=== PATIENT | female | born 1980 | race Caucasian/White ===

== ENCOUNTER 2020-10-12 17:28 | Emergency (ER) | payer SELFPAY ==
[~2020-10-12] VITALS: Ht 149.1 cm; Wt 49.0 kg
[~2020-10-12 17:28] MED LIST: ALPR.25T
--- NOTE | 2020-10-12 17:49 | ED Psychosocial ---
General Chief Complaint: Psych/Social Disorder Stated Complaint: SUICIDAL History of Present Illness Date Seen by Provider: Oct 12, 2020 Time Seen by Provider: 17:45 Initial Comments Patient is a 40-year-old female who presents to the emergency room by EMS today with a chief complaint of suicidal ideation. Patient has been undergoing some recent family stress and had a panic attack today. She called her therapist and verbalized some of her stresses to the therapist and mentioned that she was suicidal. The patient states that she was going to take all of her citalopram and hydroxyzine in order to overdose. Patient states "I just do not feel like I want to be here anymore". She states "I just cannot do anything". Timing/Duration: just prior to arrival Severity: severe Associated Symptoms: suicidal ideation (JAKI RIVER MD) Allergies and Home Medications Allergies Coded Allergies: No Known Drug Allergies (Unverified Allergy, Mild, 06/09/09) Patient Home Medication List Home Medication List Reviewed: Yes (JAKI RIVER MD) Review of Systems Constitutional: see HPI (KEVIN JETER) All Other Systems Reviewed Negative Unless Noted: Yes (KEVIN JETER) Past Kyhdzub-Sgcozv-Sbsqqs Hx Past Medical History Reproductive Disorders: No (JAKI RIVER MD) Physical Exam Vital Signs - First Documented 10/12/20 17:28 Temp 35.6 Pulse 75 Resp 18 B/P (MAP) 133/88 (103) Pulse Ox 98 O2 Delivery Room Air (KEVIN JETER) Capillary Refill : (JAKI RIVER MD) Height, Weight, BMI Height: '" Weight: lbs. oz. kg; BMI Method: General Appearance: WD/WN, moderate distress (Tearful and upset) Neck: full range of motion Respiratory: no respiratory distress, no accessory muscle use Extremities: normal inspection Neurologic/Psychiatric: alert, normal mood/affect (Depressed mood and flat affect), oriented x 3, depressed affect Appearance/Memory: appropriate appearance, neat, no memory impairment Behavior/Eye Contact: cooperative, good eye contact, normal speech Skin: normal color (JAKI RIVER MD) Skin: warm/dry (KEVIN JETER) Progress/Results/Core Measures Results/Orders Lab Results Laboratory Tests Test 10/12/20 18:16 Range/Units White Blood Count 10.5 4.3-11.0 10^3/uL Red Blood Count 4.42 3.80-5.11 10^6/uL Hemoglobin 14.6 11.5-16.0 g/dL Hematocrit 42 35-52 % Mean Corpuscular Volume 96 80-99 fL Mean Corpuscular Hemoglobin 33 25-34 pg Mean Corpuscular Hemoglobin Concent 35 32-36 g/dL Red Cell Distribution Width 13.8 10.0-14.5 % Platelet Count 191 130-400 10^3/uL Mean Platelet Volume 11.2 9.0-12.2 fL Immature Granulocyte % (Auto) 0 % Neutrophils (%) (Auto) 64 42-75 % Lymphocytes (%) (Auto) 29 12-44 % Monocytes (%) (Auto) 6 0-12 % Eosinophils (%) (Auto) 0 0-10 % Basophils (%) (Auto) 0 0-10 % Neutrophils # (Auto) 6.7 1.8-7.8 10^3/uL Lymphocytes # (Auto) 3.0 1.0-4.0 10^3/uL Monocytes # (Auto) 0.7 0.0-1.0 10^3/uL Eosinophils # (Auto) 0.0 0.0-0.3 10^3/uL Basophils # (Auto) 0.0 0.0-0.1 10^3/uL Immature Granulocyte # (Auto) 0.0 0.0-0.1 10^3/uL Sodium Level 138 135-145 MMOL/L Potassium Level 3.5 L 3.6-5.0 MMOL/L Chloride Level 105 98-107 MMOL/L Carbon Dioxide Level 19 L 21-32 MMOL/L Anion Gap 14 5-14 MMOL/L Blood Urea Nitrogen 12 7-18 MG/DL Creatinine 0.73 0.60-1.30 MG/DL Estimat Glomerular Filtration Rate > 60 BUN/Creatinine Ratio 16 Glucose Level 106 H 70-105 MG/DL Calcium Level 9.2 8.5-10.1 MG/DL Corrected Calcium 8.9 8.5-10.1 MG/DL Total Bilirubin 0.5 0.1-1.0 MG/DL Aspartate Amino Transf (AST/SGOT) 16 5-34 U/L Alanine Aminotransferase (ALT/SGPT) 11 0-55 U/L Alkaline Phosphatase 59 40-136 U/L Total Protein 7.1 6.4-8.2 GM/DL Albumin 4.4 3.2-4.5 GM/DL Salicylates Level < 5.0 L 5.0-20.0 MG/DL Acetaminophen Level < 10 L 10-30 UG/ML Serum Alcohol < 10 <10 MG/DL (KEVIN JETER) Vital Signs/I&O 10/12/20 10/12/20 17:28 18:46 Temp 35.6 35.6 Pulse 75 75 Resp 18 18 B/P (MAP) 133/88 (103) 133/88 (103) Pulse Ox 98 98 O2 Delivery Room Air (KEVIN JETER) Progress Progress Note : Time: 17:48 Progress Note Care passed to Dr. Jeter at shift change with studies pending and psych placement pending (JAKI RIVER MD) Progress Note #1: Time: 18:12 Progress Note Assumed care of the patient at shift change. I agree with the above documented history and physical exam by Dr. River. Patient is tearful affect and has come to us with the plan of suicidal ideation without attempt but with adequate means to take her on Cymbalta and hydroxyzine. She states she has not taken any this. Labs and urine have been ordered. EKG is unremarkable. Covid screen has been ordered. Patient has no reason historically or on examination to suspect she actually has COVID-19 at this time. It is her goal to go to inpatient psychiatric hospitalization and assumes we have her labs reviewed we will help her facilitate this. Progress Note #2: Time: 18:48 Progress Note Nursing staff relays to this provider that the patient is in the lobby and would like to come back and be with the patient. The patient says she needs to talk to her . They have been speaking to each other over the phone. I informed nursing that at this time were not going to have any visitors until I get a chance to visit with the patient and see what her goals are since most of her grief and interpersonal relationship issues tonight seem to stem between her and her . 2 minutes after I spoke to the nurse I went to the room to ch mady in with the patient and she had already left. She did not have an IV in at any time. Nursing staff was asked to call the police department for a welfare check. The patient had indicated to nursing that she no longer wanted to go to inpatient psychiatric and was no longer suicidal but rather wanted to be with her . We did not get a chance to formulate an outpatient plan with her and while she does not need to come back to the ER specifically if she is not having suicidal ideation anymore we will try and get [facility] involved through the police department so they can follow-up with her Progress Note #3: Time: 19:27 Progress Note Nursing staff left a voicemail with after hours [facility]. She also called dispatch and they dispatched units to both of the address is on record but nobody was at home in either 1 of those. We tried calling all the phone numbers listed on record and were told that these were the wrong numbers. The patient left presumably with her which is who she wanted to be with. Dispatch call back to let us know there were unable to locate the patient. (KEVIN JETER) Initial ECG Impression Date: Oct 12, 2020 Initial ECG Impression Time: 18:05 Initial ECG Rate: 87 Initial ECG Rhythm: Normal Sinus Initial ECG Intervals: Normal Initial ECG Impression: Normal Comment Normal sinus rhythm without clinically relevant ST elevation or depression. (KEVIN JETER) Departure Impression Primary Impression: Suicidal ideation Additional Impression: Interpersonal relationship problem, no mental disorder Disposition: 07 AGAINST MEDICAL ADVICE Condition: Against Medical Advice Departure-Patient Inst. Decision time for Depature: 18:42 (KEVIN JETER) Referrals: EVELYN CARROLL MD (PCP) Primary Care Physician Patient Instructions: Suicide Prevention Add. Discharge Instructions: Please call [phone] to arrange follow-up with [facility]. They can introduce you to Drs., Counselors, therapist etc. Return to the ER promptly if you are having recurrent thoughts of suicide. Follow-up with your primary care doctor for help managing your symptoms and situation. All discharge instructions reviewed with patient and/or family. Voiced understanding. JAKI RIVER MD Oct 12, 2020 17:49 KEVIN JETER Oct 12, 2020 18:15
[2020-10-12 18:41] LABS: BASOPHILS % (AUTO) 0 % (0-10); EOSINOPHILS % (AUTO) 0 % (0-10); HEMATOCRIT 42 % (35-52); HEMOGLOBIN 14.6 g/dL (11.5-16.0); LYMPHOCYTES % (AUTO) 29 % (12-44); MEAN CORPUSCULAR HEMOGLOBIN 33 pg (25-34); MEAN CORPUSCULAR HGB CONC 35 g/dL (32-36); MEAN CORPUSCULAR VOLUME 96 fL (80-99); MEAN PLATELET VOLUME 11.2 fL (9.0-12.2); MONOCYTES # (AUTO) 0.7 10^3/uL (0.0-1.0); MONOCYTES % (AUTO) 6 % (0-12); NEUTROPHILS # (AUTO) 6.7 10^3/uL (1.8-7.8); NEUTROPHILS % (AUTO) 64 % (42-75); PLATELET COUNT 191 10^3/uL (130-400); WHITE BLOOD COUNT 10.5 10^3/uL (4.3-11.0)
[2020-10-12 18:46] VITALS: BP 133/88
[2020-10-12 18:53] LABS: ALANINE AMINOTRANSFERASE 11 U/L (0-55); ALBUMIN 4.4 GM/DL (3.2-4.5); ALKALINE PHOSPHATASE 59 U/L (40-136); BILIRUBIN,TOTAL 0.5 MG/DL (0.1-1.0); BUN/CREATININE RATIO 16; CALCIUM 9.2 MG/DL (8.5-10.1); CARBON DIOXIDE 19 MMOL/L (21-32); CHLORIDE 105 MMOL/L (98-107); CREATININE SERUM 0.73 MG/DL (0.60-1.30); GFR ESTIMATED > 60; GLUCOSE 106 MG/DL (70-105); POTASSIUM 3.5 MMOL/L (3.6-5.0); SALICYLATE < 5.0 MG/DL (5.0-20.0); SODIUM 138 MMOL/L (135-145); TOTAL PROTEIN 7.1 GM/DL (6.4-8.2)
[2020-10-12 18:55] LABS: ACETAMINOPHEN < 10 UG/ML (10-30)
== END 2020-10-12 18:46 | disposition left against medical advice (07) ==
LOC: EDUNIT# 17:28 → ER 17:31
DX: R45.851 Suicidal ideations (principal); F32.9 Major depressive disorder, single episode, unspecified; Z63.79 Other stressful life events affecting family and household
CPT/HCPCS: 80053; 85025; G0480 ×3; 36415; 80320; 80329; 93005